=== PATIENT | female | born 1995 | race Caucasian/White ===

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

== ENCOUNTER → 2017-04-27 | Outpatient (CLI) | payer BC | LOC: BHSO 14:52 | DX: F41.1 Generalized anxiety disorder (principal) ==

== ENCOUNTER 2018-04-28 22:06 | Emergency (ER) | payer BC ==
[~2018-04-28] VITALS: Ht 175.3 cm; Wt 72.7 kg
[2018-04-28 22:20] VITALS: BP 122/76; TEMP 96.8
[2018-04-28 23:22] VITALS: PULSE 74
== END 2018-04-28 23:22 | disposition home or self-care (01) ==
LOC: COL.ER 22:06
DX: S60.211A Contusion of right wrist, initial encounter (principal); W22.8XXA Striking against or struck by other objects, initial encounter; Y92.009 Unspecified place in unspecified non-institutional (private) residence as the place of occurrence of the external cause

== ENCOUNTER → 2021-01-09 | Outpatient (CLI) | payer BC | LOC: MC.RAD 08:50 | DX: N63.20 Unspecified lump in the left breast, unspecified quadrant (principal) ==

== ENCOUNTER 2021-06-12 16:00 | Emergency (ER) | payer BC ==
[~2021-06-12] VITALS: Ht 175.3 cm; Wt 93.6 kg
[2021-06-12 16:15] VITALS: BP 109/71; TEMP 98.4
[2021-06-12 18:01] LABS: COLLECTION METHOD CLEAN CATCH
[2021-06-12 18:25] LABS: MUCOUS Present (NOT PRESENT); PH 6 (5-8); URINE APPEARANCE Hazy (CLEAR/HAZY); URINE BACTERIA Rare /hpf (NONE SEEN); URINE BILIRUBIN Negative (NEGATIVE); URINE BLOOD 2+ (NEGATIVE); URINE CALCIUM OXALATE CRYSTAL Present (NOT PRESENT); URINE COLOR Yellow (YELLOW); URINE GLUCOSE Negative (NEGATIVE); URINE KETONE Trace (NEGATIVE); URINE LEUKOCYTE ESTERASE Negative (NEGATIVE); URINE NITRATE Negative (NEGATIVE); URINE PROTEIN(semi-quant) Negative (NEGATIVE); URINE RBC >50 /hpf (0-2); URINE UROBILINOGEN Negative (NEGATIVE)
[2021-06-12 19:10] VITALS: PULSE 98
== END 2021-06-12 19:16 | disposition home or self-care (01) ==
LOC: COL.ER 16:00
PROVIDERS: Physician Assistant
DX: U07.1 COVID-19 (principal); J12.82 Pneumonia due to coronavirus disease 2019; Z73.0 Burn-out